=== PATIENT | female | born 1990 | race Caucasian/White ===

== ENCOUNTER 2021-06-28 13:48 | Emergency (ER) | payer OTHER ==
[2021-06-28 14:08] VITALS: BMI 26.6
[2021-06-28] MEDS ORDERED: ACETAMINOPHEN 500 MG TABLET (FP) PO ONE (14:58)
[2021-06-28] MEDS ORDERED: ACETAMINOPHEN 325 MG TABLET (FP) ONE ×2 (15:59→16:01)
[2021-06-28 16:50] LABS: EPI CELLS 29 /uL (0-25.1); HYALINE CASTS 1 /uL (0-3.1); URINE APPEARANCE CLEAR; URINE BACTERIA 218 /uL (0-1359); URINE BILIRUBIN NEGATIVE (NEGATIVE); URINE COLOR YELLOW; URINE GLUCOSE (UA) NEGATIVE (NEGATIVE); URINE KETONE NEGATIVE (NEGATIVE); URINE LEUK ESTERASE TRACE (NEGATIVE); URINE NITRITE NEGATIVE (NEGATIVE); URINE PROTEIN NEGATIVE (NEGATIVE); URINE RBC 32 /uL (0-23.9); URINE WBC 16 /uL (0-25.8)
[2021-06-28 20:48] VITALS: BP 119/65; PULSE 110; TEMP 98.6
== END 2021-06-28 20:10 | disposition home or self-care (01) ==
LOC: JER 13:48
PROC: 0HQJXZZ Repair Left Upper Leg Skin, External Approach (ICD-10-PCS; principal; 2021-06-28)
DX: L02.416 Cutaneous abscess of left lower limb (principal)
CPT/HCPCS: 81003; 87086; 99283-25

== ENCOUNTER 2021-06-30 10:48 | Emergency (ER) | payer OTHER ==
[2021-06-30 10:54] VITALS: BP 127/73; PULSE 116; TEMP 98.3; BMI 27.9
== END 2021-06-30 12:08 | disposition home or self-care (01) ==
LOC: JERFT 10:48
DX: O26.893 Other specified pregnancy related conditions, third trimester (principal); L02.416 Cutaneous abscess of left lower limb; Z3A.31 31 weeks gestation of pregnancy; Z48.01 Encounter for change or removal of surgical wound dressing
CPT/HCPCS: 99281-25

== ENCOUNTER 2021-09-02 01:50 | Inpatient (IN) | payer OTHER ==
[2021-09-02] MEDS ORDERED: PROMETHAZINE HCL 25 MG/1 ML VIAL IVPUSH ONE (02:54)
[2021-09-02] MEDS ORDERED: BUTORPHANOL TARTRATE 1 MG/ML VIAL IVPB PRN (02:54)
[2021-09-02] MEDS ORDERED: DINOPROSTONE 10 MG VAGINAL SUPPOSITORY VG ONE (02:56)
[2021-09-02 05:16] VITALS: BMI 30.2
[2021-09-02] MEDS: ELECTROLYTE-148 SOLN 1,000 ML IV SCH (11:45)
[2021-09-02] MEDS ORDERED: LABETALOL HCL 200 MG TABLET (FP) PO ONE (16:00)
[2021-09-02] MEDS: OXYTOCIN 30 UNITS in 0.9% NS 30 UNIT/500 ML INFUS.BAG IVPB SCH (16:49)
[2021-09-02] MEDS ORDERED: OXYTOCIN 30 UNITS in 0.9% NS 30 UNIT/500 ML INFUS.BAG IVPB ONE (16:55)
[2021-09-02] MEDS ORDERED: LABETALOL HCL 200 MG TABLET (FP) ONE (16:55)
[2021-09-02 16:56] LABS: BASO % 0.5 % (0-2.0); EOS % 2.3 % (0-4.5); HEMATOCRIT 38.5 % (32.4-45.2); HEMOGLOBIN 12.4 GM/dL (10.7-15.3); LYMPH % 11.6 % (8-40); MCH 27.2 pg (25.7-33.7); MCHC 32.2 g/dl (32.0-36.0); MEAN CELL VOLUME 84.4 fl (80-96); MEAN PLT VOLUME 7.9 fl (7.5-11.1); MONO % 10.8 % (3.8-10.2); NEUT % 74.8 % (42.8-82.8); PLATELET COUNT 332 10^3/uL (134-434); RBC 4.56 M/mm3 (3.60-5.2); RDW 14.7 % (11.6-15.6); WHITE BLOOD COUNT 11.3 K/mm3 (4.0-10.0)
[2021-09-02 17:32] LABS: ALBUMIN 2.6 g/dl (3.4-5.0); BLOOD UREA NITROGEN 8.1 mg/dL (7-18)
[2021-09-02 17:34] LABS: URIC ACID 5.7 mg/dL (2.6-7.2)
[2021-09-02 17:35] LABS: CREATININE 0.7 mg/dL (0.55-1.3)
[2021-09-02 17:36] LABS: BILIRUBIN,TOTAL 0.3 mg/dL (0.2-1); TOT PROT 6.4 g/dl (6.4-8.2)
[2021-09-02 18:12] LABS: EPI CELLS 14 /uL (0-25.1); HYALINE CASTS 0 /uL (0-3.1); PH,URINE 7.5 (5.0-8.0); URINE APPEARANCE CLEAR; URINE BACTERIA 41 /uL (0-1359); URINE BILIRUBIN NEGATIVE (NEGATIVE); URINE COLOR YELLOW; URINE GLUCOSE (UA) NEGATIVE (NEGATIVE); URINE KETONE NEGATIVE (NEGATIVE); URINE LEUK ESTERASE TRACE (NEGATIVE); URINE NITRITE NEGATIVE (NEGATIVE); URINE PROTEIN NEGATIVE (NEGATIVE); URINE RBC 4 /uL (0-23.9); URINE UROBILINOGEN 0.2 mg/dL (0.2-1.0); URINE WBC 6 /uL (0-25.8)
[2021-09-02] MEDS ORDERED: PROMETHAZINE HCL 25 MG/1 ML VIAL ONE (18:24)
[2021-09-02] MEDS ORDERED: BUTORPHANOL TARTRATE 2 MG/ML VIAL ONE (18:24)
[2021-09-02] MEDS: LABETALOL HCL 200 MG TABLET (FP) PO SCH (22:00)
[2021-09-02] MEDS ORDERED: FENTANYL/BUPIVACAINE/NS/PF - PCEA - 50 ML DISP.SYRIN EP ONE (23:00)
[2021-09-02] MEDS ORDERED: LIDOCAINE HCL/EPINEPHRINE/PF 20 ML VIAL ONE (23:19)
[2021-09-02] MEDS ORDERED: BUPIVACAINE HCL/PF 0.25% (2.5MG/ML) 10 ML VIAL ONE (23:19)
[2021-09-02] MEDS ORDERED: LIDOCAINE HCL 1% PRESERVATIVE FREE - 30ML VIAL ONE (23:19)
[2021-09-02] MEDS ORDERED: FENTANYL/BUPIVACAINE/NS/PF - PCEA - 50 ML DISP.SYRIN EP SCH (23:45)
[2021-09-02] MEDS ORDERED: NALOXONE HCL 0.4 MG/ML VIAL IVPUSH PRN (23:55)
[2021-09-03] MEDS ORDERED: AMPICILLIN - 1 GM in SODIUM CHLORIDE 100 ML IVPB SCH (00:42)
[2021-09-03] MEDS ORDERED: FENTANYL/BUPIVACAINE/NS/PF - PCEA - 50 ML DISP.SYRIN EP ONE (03:49)
[2021-09-03] MEDS ORDERED: OXYTOCIN 20 UNITS in 0.9% NS 20 UNIT/1,000 ML INFUS.BAG IV ONE (04:41)
[2021-09-03] MEDS ORDERED: LIDOCAINE HCL/EPINEPHRINE/PF 20 ML VIAL ONE ×2 (04:41→05:07)
[2021-09-03] MEDS ORDERED: ACETAMINOPHEN 325 MG TABLET (FP) PO PRN (04:51)
[2021-09-03] MEDS ORDERED: METHYLERGONOVINE MALEATE 0.2 MG/1 ML AMP IM PRN (04:51)
[2021-09-03] MEDS ORDERED: OXYTOCIN 20 UNITS in 0.9% NS 20 UNIT/1,000 ML INFUS.BAG IV SCH (05:00)
[2021-09-03] MEDS ORDERED: morphine SULFATE/PF 1 MG/2 ML (2cc Syringe - QUVA) ONE (05:13)
[2021-09-03] MEDS ORDERED: AZITHROMYCIN IVPB 500 MG/250 ML BAG IVPB ONE (05:36)
[2021-09-03] MEDS ORDERED: DEXAMETHASONE SOD PHOSPHATE 4 MG/1 ML VIAL ONE (05:56)
[2021-09-03] MEDS ORDERED: OXYTOCIN 10 UNITS/ML VIAL ONE (05:56)
[2021-09-03] MEDS ORDERED: KETOROLAC TROMETHAMINE 30 MG/1 ML VIAL ONE (05:56)
[2021-09-03] MEDS ORDERED: ceFAZolin SODIUM 1 GM VIAL ONE (05:56)
[2021-09-03] MEDS ORDERED: ONDANSETRON 4 MG/2 ML VIAL ONE (05:56)
[2021-09-03] MEDS ORDERED: ONDANSETRON 4 MG/2 ML VIAL IVPUSH PRN (06:16)
[2021-09-03] MEDS ORDERED: morphine SULFATE/PF 1 MG/2 ML (2cc Syringe - QUVA) EP ONE (06:16)
[2021-09-03] MEDS ORDERED: BUPIVACAINE HCL/PF 0.25% (2.5MG/ML) 10 ML VIAL ONE ×2 (06:19)
[2021-09-03 06:49] LABS: CORD BASE EXCESS -6.3 mmol/L (0-2); CORD HCO3 19.9 mmHg (20-29); CORD PCO2 41.9 mmHg (30-78); CORD pH 7.294 (7.14-7.44)
[2021-09-03 06:54] LABS: CORD BASE EXCESS -5.9 mmol/L (0-2); CORD PCO2 41.2 mmHg (30-78); CORD pH 7.305 (7.14-7.44)
[2021-09-03] MEDS: IBUPROFEN 800 MG/8 ML IJ IVPB PRN ×2 (08:32→14:29)
[2021-09-03] MEDS: LABETALOL HCL 200 MG TABLET (FP) PO SCH ×2 (09:20→21:19)
[2021-09-03] MEDS: FERROUS SO4 325 MG TABLET (FP) PO SCH ×2 (09:33→21:19)
[2021-09-03] MEDS: PRENATAL VITAMINS W/ FOLIC ACID TABLET (FP) PO SCH (09:35)
[2021-09-03] MEDS ORDERED: oxyCODONE HCL 5 MG TABLET PO PRN (16:52)
[2021-09-03] MEDS: ELECTROLYTE-148 SOLN 1,000 ML IV SCH (20:58)
[2021-09-03] MEDS: OXYTOCIN 30 UNITS in 0.9% NS 30 UNIT/500 ML INFUS.BAG IVPB SCH (20:58)
[2021-09-03] MEDS: SIMETHICONE 80 MG TAB.CHEW (FP) PO PRN (21:18)
[2021-09-03] MEDS: IBUPROFEN 600 MG TABLET (FP) PO PRN (21:19)
[2021-09-03] MEDS: SENNOSIDES/DOCUSATE COMBO (SENNA PLUS) TABLET (UD) PO PRN (21:41)
[2021-09-04] MEDS ORDERED: BISACODYL 10 MG SUPP.RECT RC PRN (04:52)
[2021-09-04 09:42] LABS: BASO % 0.2 % (0-2.0); EOS % 0.1 % (0-4.5); HEMATOCRIT 30.2 % (32.4-45.2); HEMOGLOBIN 9.8 GM/dL (10.7-15.3); LYMPH % 7.9 % (8-40); MCH 27.7 pg (25.7-33.7); MCHC 32.6 g/dl (32.0-36.0); MEAN PLT VOLUME 7.8 fl (7.5-11.1); MONO % 6.3 % (3.8-10.2); NEUT % 85.5 % (42.8-82.8); PLATELET COUNT 235 10^3/uL (134-434); RBC 3.55 M/mm3 (3.60-5.2); RDW 14.4 % (11.6-15.6); WHITE BLOOD COUNT 14.5 K/mm3 (4.0-10.0)
[2021-09-04] MEDS ORDERED: oxyCODONE HCL 5 MG TABLET PO PRN (10:00)
[2021-09-04] MEDS: SIMETHICONE 80 MG TAB.CHEW (FP) PO PRN ×2 (10:53→21:34)
[2021-09-04] MEDS: IBUPROFEN 600 MG TABLET (FP) PO PRN (10:53)
[2021-09-04] MEDS: FERROUS SO4 325 MG TABLET (FP) PO SCH ×2 (10:53→21:34)
[2021-09-04] MEDS: PRENATAL VITAMINS W/ FOLIC ACID TABLET (FP) PO SCH (10:53)
[2021-09-04] MEDS: LABETALOL HCL 200 MG TABLET (FP) PO SCH ×3 (10:59→21:54)
[2021-09-04] MEDS: SENNOSIDES/DOCUSATE COMBO (SENNA PLUS) TABLET (UD) PO PRN (21:34)
[2021-09-05] MEDS: IBUPROFEN 600 MG TABLET (FP) PO PRN (10:30)
[2021-09-05] MEDS: PRENATAL VITAMINS W/ FOLIC ACID TABLET (FP) PO SCH (10:30)
[2021-09-05] MEDS: FERROUS SO4 325 MG TABLET (FP) PO SCH (10:30)
[2021-09-05] MEDS: SIMETHICONE 80 MG TAB.CHEW (FP) PO PRN (10:30)
[2021-09-05] MEDS: LABETALOL HCL 200 MG TABLET (FP) PO SCH (10:34)
[2021-09-05 12:04] VITALS: PULSE 83
[2021-09-05 15:13] VITALS: BP 126/84; TEMP 98.1
== END 2021-09-05 17:30 | disposition home or self-care (01) | DRG 540 ==
LOC: JLDR 01:50 → J3W 09-03 07:45
PROVIDERS: ADMIT Obstetrics & Gynecology; ATTEND Obstetrics & Gynecology
PROC: 3E0P7VZ Introduction of Hormone into Female Reproductive, Via Natural or Artificial Opening (ICD-10-PCS; 2021-09-02)
PROC: 10D00Z1 Extraction of Products of Conception, Low, Open Approach (ICD-10-PCS; principal; 2021-09-03)
DX: O62.0 Primary inadequate contractions (principal); O48.0 Post-term pregnancy; Z37.0 Single live birth; Z3A.41 41 weeks gestation of pregnancy
CPT/HCPCS: 36415; 36600; 80053; 81003; 82570; 82803; 84156; 84550; 85025; 88307-TC